=== PATIENT | female | born 1990 | race Caucasian/White ===

== ENCOUNTER → 2018-12-03 | Outpatient (CLI) | payer OTHER ==
[2018-12-03 12:45] LABS: Basophils % (A) 1 %; Eosinophils # (A) 0.1 k/uL (0-0.7); Eosinophils % (A) 1 %; HGB 12.3 gm/dL (11.4-16.0); Lymphocytes # (A) 2.5 k/uL (1.0-4.8); Lymphocytes % (A) 34 %; MCH 29.2 pg (25.0-35.0); MCHC 33.2 g/dL (31.0-37.0); MCV 87.9 fL (80.0-100.0); Mean Platelet Volume 7.3; Monocytes # (A) 0.2 k/uL (0-1.0); Monocytes % (A) 3 %; Neutrophils # (A) 4.5 k/uL (1.3-7.7); Neutrophils % (A) 60 %; Platelet Count 255 k/uL (150-450); RBC 4.21 m/uL (3.80-5.40); RDW 12.2 % (11.5-15.5); WBC 7.5 k/uL (3.8-10.6)
[2018-12-03 14:39] LABS: Erythrocyte Sedimentation Rate 6 mm/hr (0-20)
[2018-12-03 18:23] LABS: Rheumatoid Factor 10 IU/mL (0-15)
== END | disposition home or self-care (01) ==
LOC: LABWHC1 12:21
PROVIDERS: ATTEND Physician Assistant
DX: F41.9 Anxiety disorder, unspecified (principal); I73.00 Raynaud's syndrome without gangrene; N30.00 Acute cystitis without hematuria
CPT/HCPCS: 36415; 85025; 85652; 86038; 86431

== ENCOUNTER 2020-03-08 13:25 | Emergency (ER) | payer OTHER ==
[2020-03-08 13:39] VITALS: TEMP 98.4
[2020-03-08] MEDS ORDERED: SODIUM CHLORIDE 0.9% 500 ML 500 ML IV STA (13:52)
[2020-03-08] MEDS ORDERED: MORPHINE SULFATE 4 MG/ML SYRINGE IV STA (13:52)
[2020-03-08] MEDS ORDERED: ONDANSETRON 4 MG/2 ML VIAL IVP STA (13:52)
--- NOTE | 2020-03-08 14:11 | ED ---
General Adult HPI - General Chief complaint: Abdominal Pain Stated complaint: Chest Pain-Sent by PCP Time Seen by Provider: 03/08/20 13:40 Source: patient, RN notes reviewed, old records reviewed Mode of arrival: wheelchair Limitations: no limitations - History of Present Illness Initial comments: 30-year-old female history of hiatal hernia presenting with epigastric abdominal pain or chest pain. She was sent in by her general surgeon for evaluation. She states she had one episode of vomiting yesterday. The pain is epigastric, nonradiating. She describes it as severe in nature. She's having normal bowel movements, no diarrhea. No fever. - Related Data Home Medications Medication Instructions Recorded Confirmed Kpavhyl-Luff-Himv [id number] 1 tab PO BID PRN 10/04/15 03/08/20 [Excedrin] HYDROcodone/APAP 7.5-325MG [[place] 1 tab PO BID 10/04/15 03/08/20 7.5-325] Diclofenac Sodium [Voltaren Gel] 1 applic TOPICAL QID PRN 03/08/20 03/08/20 Omeprazole Magnesium [PriLOSEC OTC] 20 mg PO BID 03/08/20 03/08/20 Allergies Allergy/AdvReac Type Severity Reaction Status Date / Time hydromorphone HCl Allergy Nausea & Verified 03/08/20 16:29 [From Dilaudid] Vomiting Review of Systems ROS Statement: Those systems with pertinent positive or pertinent negative responses have been documented in the HPI. ROS Other: All systems not noted in ROS Statement are negative. Past Medical History Past Medical History: Fibromyalgia Additional Past Medical History / Comment(s): HEMANGIOMAS IN THROAT. HX FREQ UTI. MIGRAINES. abdominal pain, degenerative disk disease History of Any Multi-Drug Resistant Organisms: None Reported Past Surgical History: Section, Hernia Repair, Tonsillectomy, Tubal Ligation, Uterine Ablation Past Anesthesia/Blood Transfusion Reactions: Family History of Problems w/ Anesthesia Additional Past Anesthesia/Blood Transfusion Reaction / Comment(s): mother- "heart stopped on the table" Past Psychological History: Anxiety, Depression Smoking Status: Never smoker Past Alcohol Use History: Rare Past Drug Use History: None Reported - Past Family History Mother Family Medical History: No Reported History General Exam Limitations: no limitations General appearance: alert, in no apparent distress Head exam: Present: atraumatic, normocephalic Eye exam: Present: normal appearance, PERRL ENT exam: Present: normal exam Neck exam: Present: normal inspection. Absent: tenderness, meningismus Respiratory exam: Present: normal lung sounds bilaterally. Absent: respiratory distress, wheezes Cardiovascular Exam: Present: regular rate, normal rhythm GI/Abdominal exam: Present: soft, tenderness (Epigastric tenderness). Absent: distended, guarding, rebound Extremities exam: Present: normal inspection, normal capillary refill Neurological exam: Present: alert, oriented X3, CN II-XII intact. Absent: motor sensory deficit Skin exam: Present: warm, dry, intact. Absent: cyanosis, diaphoretic Course Vital Signs 03/08/20 03/08/20 03/08/20 13:37 15:31 17:00 Temperature 98.4 F Pulse Rate 101 H 111 H 110 H Respiratory 16 20 20 Rate Blood Pressure 126/82 132/78 137/92 O2 Sat by Pulse 100 100 99 Oximetry EKG Findings - EKG Comments: EKG Findings:: EKG: Normal sinus rhythm, rate of 88, LA interval 128, QRS duration 78, QTC 457, no ST segment elevation, T-wave inversion in lead V2. Medical Decision Making - Medical Decision Making 30 yo presenting with epigastric abdominal pain. Ultrasound showing a single large mobile gallstone, no acute cholecystitis. She has normal CBC, normal CMP x-ray performed negative for obstruction. She did remain quite symptomatic while emergency department, CT was ordered this was negative for any acute intra-abdominal pathology. I discussed case with general surgery Dr. Kemp who will see the patient is ON Thursday. She will have a no fat clear liquid diet until that time. - Lab Data Result diagrams: 03/08/20 14:25 03/08/20 14:25 Lab Results 03/08/20 03/08/20 03/08/20 Range/Units 14:25 14:25 14:25 WBC 7.3 (3.8-10.6) k/uL RBC 4.57 (3.80-5.40) m/uL Hgb 13.3 (11.4-16.0) gm/dL Hct 40.1 (34.0-46.0) % MCV 87.7 (80.0-100.0) fL MCH 29.2 (25.0-35.0) pg MCHC 33.3 (31.0-37.0) g/dL RDW 11.9 (11.5-15.5) % Plt Count 251 (150-450) k/uL Neutrophils % 64 % Lymphocytes % 28 % Monocytes % 4 % Eosinophils % 1 % Basophils % 1 % Neutrophils # 4.7 (1.3-7.7) k/uL Lymphocytes # 2.1 (1.0-4.8) k/uL Monocytes # 0.3 (0-1.0) k/uL Eosinophils # 0.1 (0-0.7) k/uL Basophils # 0.0 (0-0.2) k/uL PT 10.6 (9.0-12.0) sec INR 1.0 (<1.2) APTT 23.3 (22.0-30.0) sec Sodium 139 (137-145) mmol/L Potassium 4.2 (3.5-5.1) mmol/L Chloride 106 (98-107) mmol/L Carbon Dioxide 26 (22-30) mmol/L Anion Gap 7 mmol/L BUN 14 (7-17) mg/dL Creatinine 0.60 (0.52-1.04) mg/dL Est GFR (CKD-EPI)AfAm >90 (>60 ml/min/1.73 sqM) Est GFR (CKD-EPI)NonAf >90 (>60 ml/min/1.73 sqM) Glucose 90 (74-99) mg/dL Plasma Lactic Acid Raciel (0.7-2.0) mmol/L Calcium 9.4 (8.4-10.2) mg/dL Total Bilirubin 0.4 (0.2-1.3) mg/dL AST 22 (14-36) U/L ALT 10 (4-34) U/L Alkaline Phosphatase 53 (38-126) U/L Troponin I (0.000-0.034) ng/mL Total Protein 7.5 (6.3-8.2) g/dL Albumin 4.5 (3.5-5.0) g/dL Amylase 58 (30-110) U/L Lipase 170 (23-300) U/L Urine Color Urine Appearance (Clear) Urine pH (5.0-8.0) Ur Specific [place] (1.001-1.035) Urine Protein (Negative) Urine Glucose (UA) (Negative) Urine Ketones (Negative) Urine Blood (Negative) Urine Nitrite (Negative) Urine Bilirubin (Negative) Urine Urobilinogen (<2.0) mg/dL Ur Leukocyte Esterase (Negative) Urine RBC (0-5) /hpf Urine WBC (0-5) /hpf Ur Squamous Epith Cells (0-4) /hpf Urine Mucus (None) /hpf Urine HCG, Qual (Not Detectd) 03/08/20 03/08/20 03/08/20 Range/Units 14:25 14:25 14:31 WBC (3.8-10.6) k/uL RBC (3.80-5.40) m/uL Hgb (11.4-16.0) gm/dL Hct (34.0-46.0) % MCV (80.0-100.0) fL MCH (25.0-35.0) pg MCHC (31.0-37.0) g/dL RDW (11.5-15.5) % Plt Count (150-450) k/uL Neutrophils % % Lymphocytes % % Monocytes % % Eosinophils % % Basophils % % Neutrophils # (1.3-7.7) k/uL Lymphocytes # (1.0-4.8) k/uL Monocytes # (0-1.0) k/uL Eosinophils # (0-0.7) k/uL Basophils # (0-0.2) k/uL PT (9.0-12.0) sec INR (<1.2) APTT (22.0-30.0) sec Sodium (137-145) mmol/L Potassium (3.5-5.1) mmol/L Chloride (98-107) mmol/L Carbon Dioxide (22-30) mmol/L Anion Gap mmol/L BUN (7-17) mg/dL Creatinine (0.52-1.04) mg/dL Est GFR (CKD-EPI)AfAm (>60 ml/min/1.73 sqM) Est GFR (CKD-EPI)NonAf (>60 ml/min/1.73 sqM) Glucose (74-99) mg/dL Plasma Lactic Acid Raciel 0.7 (0.7-2.0) mmol/L Calcium (8.4-10.2) mg/dL Total Bilirubin (0.2-1.3) mg/dL AST (14-36) U/L ALT (4-34) U/L Alkaline Phosphatase (38-126) U/L Troponin I <0.012 (0.000-0.034) ng/mL Total Protein (6.3-8.2) g/dL Albumin (3.5-5.0) g/dL Amylase (30-110) U/L Lipase (23-300) U/L Urine Color Yellow Urine Appearance Cloudy H (Clear) Urine pH 7.0 (5.0-8.0) Ur Specific [place] 1.024 (1.001-1.035) Urine Protein Negative (Negative) Urine Glucose (UA) Negative (Negative) Urine Ketones Negative (Negative) Urine Blood Negative (Negative) Urine Nitrite Negative (Negative) Urine Bilirubin Negative (Negative) Urine Urobilinogen <2.0 (<2.0) mg/dL Ur Leukocyte Esterase Negative (Negative) Urine RBC 1 (0-5) /hpf Urine WBC 3 (0-5) /hpf Ur Squamous Epith Cells 13 H (0-4) /hpf Urine Mucus Many H (None) /hpf Urine HCG, Qual (Not Detectd) 03/08/20 Range/Units 14:31 WBC (3.8-10.6) k/uL RBC (3.80-5.40) m/uL Hgb (11.4-16.0) gm/dL Hct (34.0-46.0) % MCV (80.0-100.0) fL MCH (25.0-35.0) pg MCHC (31.0-37.0) g/dL RDW (11.5-15.5) % Plt Count (150-450) k/uL Neutrophils % % Lymphocytes % % Monocytes % % Eosinophils % % Basophils % % Neutrophils # (1.3-7.7) k/uL Lymphocytes # (1.0-4.8) k/uL Monocytes # (0-1.0) k/uL Eosinophils # (0-0.7) k/uL Basophils # (0-0.2) k/uL PT (9.0-12.0) sec INR (<1.2) APTT (22.0-30.0) sec Sodium (137-145) mmol/L Potassium (3.5-5.1) mmol/L Chloride (98-107) mmol/L Carbon Dioxide (22-30) mmol/L Anion Gap mmol/L BUN (7-17) mg/dL Creatinine (0.52-1.04) mg/dL Est GFR (CKD-EPI)AfAm (>60 ml/min/1.73 sqM) Est GFR (CKD-EPI)NonAf (>60 ml/min/1.73 sqM) Glucose (74-99) mg/dL Plasma Lactic Acid Raciel (0.7-2.0) mmol/L Calcium (8.4-10.2) mg/dL Total Bilirubin (0.2-1.3) mg/dL AST (14-36) U/L ALT (4-34) U/L Alkaline Phosphatase (38-126) U/L Troponin I (0.000-0.034) ng/mL Total Protein (6.3-8.2) g/dL Albumin (3.5-5.0) g/dL Amylase (30-110) U/L Lipase (23-300) U/L Urine Color Urine Appearance (Clear) Urine pH (5.0-8.0) Ur Specific [place] (1.001-1.035) Urine Protein (Negative) Urine Glucose (UA) (Negative) Urine Ketones (Negative) Urine Blood (Negative) Urine Nitrite (Negative) Urine Bilirubin (Negative) Urine Urobilinogen (<2.0) mg/dL Ur Leukocyte Esterase (Negative) Urine RBC (0-5) /hpf Urine WBC (0-5) /hpf Ur Squamous Epith Cells (0-4) /hpf Urine Mucus (None) /hpf Urine HCG, Qual Not Detected (Not Detectd) Disposition Clinical Impression: Biliary colic, Gallstones Disposition: HOME SELF-CARE Condition: Good Instructions (If sedation given, give patient instructions): Abdominal Pain (ED), Gallstones (ED), Biliary Colic (ED) Is patient prescribed a controlled substance at d/c from ED?: No Referrals: Rickie Ignacio MD [Primary Care Provider] - 1-2 days Delmar Kemp MD [STAFF PHYSICIAN] - 1-2 days Time of Disposition: 17:33
[2020-03-08 14:45] LABS: Basophils % (A) 1 %; Eosinophils # (A) 0.1 k/uL (0-0.7); Eosinophils % (A) 1 %; HCT 40.1 % (34.0-46.0); HGB 13.3 gm/dL (11.4-16.0); Lymphocytes # (A) 2.1 k/uL (1.0-4.8); Lymphocytes % (A) 28 %; MCH 29.2 pg (25.0-35.0); MCHC 33.3 g/dL (31.0-37.0); MCV 87.7 fL (80.0-100.0); Monocytes # (A) 0.3 k/uL (0-1.0); Monocytes % (A) 4 %; Neutrophils # (A) 4.7 k/uL (1.3-7.7); Neutrophils % (A) 64 %; Platelet Count 251 k/uL (150-450); RBC 4.57 m/uL (3.80-5.40); RDW 11.9 % (11.5-15.5); WBC 7.3 k/uL (3.8-10.6)
[2020-03-08 14:46] LABS: Appearance,Urine Cloudy (Clear); Bilirubin,Urine Negative (Negative); Blood,Urine Negative (Negative); Color,Urine Yellow; Glucose,Urine (UA) Negative (Negative); Ketones,Urine Negative (Negative); Leukocyte Esterase,Urine Negative (Negative); Mucus,Urine Many /hpf; Nitrite,Urine Negative (Negative); Protein,Urine Negative (Negative); RBC,Urine 1 /hpf (0-5); Specific Gravity,Urine 1.024 (1.001-1.035); Squamous Epithelial Cell,Urine 13 /hpf (0-4); Urobilinogen,Urine <2.0 mg/dL (<2.0); WBC,Urine 3 /hpf (0-5)
[2020-03-08 14:54] LABS: ALT 10 U/L (4-34); AST 22 U/L (14-36); African American GFR (CKD) >90 (>60 ml/min/1.73 sqM); Albumin 4.5 g/dL (3.5-5.0); Alkaline Phosphatase 53 U/L (38-126); Amylase 58 U/L (30-110); Anion Gap 7 mmol/L; Blood Urea Nitrogen 14 mg/dL (7-17); Calcium 9.4 mg/dL (8.4-10.2); Carbon Dioxide 26 mmol/L (22-30); Chloride 106 mmol/L (98-107); Glucose 90 mg/dL (74-99); Non-African American GFR(CKD) >90 (>60 ml/min/1.73 sqM); Potassium 4.2 mmol/L (3.5-5.1); Sodium 139 mmol/L (137-145); Total Bilirubin 0.4 mg/dL (0.2-1.3); Total Protein 7.5 g/dL (6.3-8.2)
[2020-03-08 14:57] LABS: Partial Thromboplastin Time 23.3 sec (22.0-30.0); Prothrombin Time 10.6 sec (9.0-12.0)
[2020-03-08] MEDS ORDERED: MAG HYDROX/AL HYDROX/SIMETH 30 ML, HYOSCYAMINE ELIXIR 10 ML, LIDOCAINE VISCOUS 2% 10 ML PO STA ×3 (15:17)
[2020-03-08] MEDS ORDERED: MORPHINE SULFATE 4 MG/ML SYRINGE IVP STA (15:17)
--- NOTE | 2020-03-08 15:21 | XR ---
EXAMINATION TYPE: XR KUB DATE OF EXAM: 03/08/2020 3:12 PM CLINICAL HISTORY: Abdominal pain TECHNIQUE: Upright images of the abdomen and pelvis were obtained COMPARISON: None. FINDINGS: Paucity of small bowel and colonic gas. The visualized bowel gas pattern is nonspecific. Th ere is a moderate amount of colonic fecal debris within the cecum and ascending colon. There is no vi sceromegaly, pneumoperitoneum, or abnormal calcification appreciated. The lung bases are clear. The o sseous structures are intact. IMPRESSION: 1. Nonspecific bowel gas pattern. 2. Moderate ascending colon fecal debris. Correlate for constipation.
[2020-03-08 15:34] VITALS: RESP 20
--- NOTE | 2020-03-08 16:06 | US ---
EXAMINATION TYPE: US gallbladder DATE OF EXAM: 03/08/2020 COMPARISON: NONE CLINICAL HISTORY: ab ;pain. severe epigastric pain x 6 days EXAM MEASUREMENTS: Liver Length: 16.2 cm Gallbladder Wall: 0.2 cm CBD: 0.5 cm Right Kidney: 10.6 x 6.6 x 3.1 cm Pancreas: wnl Liver: wnl Gallbladder: large shadowing and mobile stone imaged= 1.5 x 1.6 x 0.7cm Evidence for sonographic Vieyra's sign: no CBD: wnl Right Kidney: No hydronephrosis or masses seen Visualized pancreas is unremarkable. IVC seen in the hepatic dome. Visualized liver shows no worrisom e mass or ductal dilatation. There is large shadowing mobile gallstone in gallbladder. No surrounding pericholecystic fluid or abnormal wall thickening. IMPRESSION: SINGLE LARGE MOBILE GALLSTONE WITHOUT SECONDARY ULTRASOUND EVIDENCE FOR ACUTE CHOLECYSTIT IS
[2020-03-08] MEDS ORDERED: SODIUM CHLORIDE 0.9% 500 ML 500 ML IV ONE (16:35)
[2020-03-08] MEDS ORDERED: HYDROmorphone 1 MG/ML 1 ML SYRINGE IVP STA (16:35)
[2020-03-08 17:02] VITALS: BP 137/92; PULSE 110
--- NOTE | 2020-03-08 17:16 | CT ---
EXAMINATION TYPE: CT abdomen pelvis w con DATE OF EXAM: 03/08/2020 COMPARISON: Ultrasound 03/08/2020 HISTORY: Pt c/o pain around xiphiod region of chest x [address] DLP: 563.4 mGycm Automated exposure control for dose reduction was used. TECHNIQUE: Helical acquisition of images was performed from the lung bases through the pelvis. CONTRAST: Performed without Oral Contrast and with IV Contrast, patient injected with 100 mL of Isovu e 300. FINDINGS: LUNG BASES: No significant abnormality is appreciated. LIVER/GB: No significant abnormality is appreciated. PANCREAS: No significant abnormality is seen. SPLEEN: No significant abnormality is seen. ADRENALS: No significant abnormality is seen. KIDNEYS: No significant abnormality is seen. FREE AIR: No free air is visualized. RETROPERITONEAL ADENOPATHY: None visualized REPRODUCTIVE ORGANS: No significant abnormality is seen URINARY BLADDER: No significant abnormality is seen. PELVIC ADENOPATHY: None visualized. OSSEOUS STRUCTURES: No significant abnormality is seen. BOWEL: No significant abnormality is seen. OTHER: No acute vascular findings. No xiphoid or kareen-xiphoid findings. IMPRESSION: 1. NEGATIVE EXAMINATION. 2. NO CORRELATE FOR THE PATIENT'S SYMPTOMS.
== END 2020-03-08 17:50 | disposition home or self-care (01) ==
LOC: EC 13:25
DX: K80.70 Calculus of gallbladder and bile duct without cholecystitis without obstruction (principal); Z88.8 Allergy status to other drugs, medicaments and biological substances
CPT/HCPCS: 36415; 93005; 80053; 82150; 83605; 83690; 84484; 85025; 85610; 85730; 81001; 81025; 74018; 76705; 74177; 99285; 96374; 96375 ×2; 96376; 96361 ×2; J2270; J2405; J1170; Q9967

== ENCOUNTER → 2020-03-21 | Day surgery (SDC) | payer OTHER ==
[2020-03-20 08:22] VITALS: BMI 22.6
[~2020-03-21] MED LIST: ACETAMINOPHEN TAB 500 MG TAB PO ONE; DEXAMETHASONE SOD PHOS (MDV) 100 MG/10 ML VIAL IVP ONE; FAMOTIDINE 20 MG/2 ML VIAL IV PRN; GLYCOPYRROLATE 0.2 MG/ML 2 ML VIAL ONE; HEPARIN SODIUM,PORCINE 5,000 UNIT/ML 1 ML VIAL SQ ONE; LACTATED RINGERS 1,000 ML IV ONE; LACTATED RINGERS 1,000 ML IV SCH; LIDOCAINE 1% (10MG/ML) FOR IV START INTRADERMA PRN; LIDOCAINE 1% INJ 10MG/ML (20 ML MDV) ONE; LIDOCAINE 1%-EPI 1:100,000 20 ML VIAL SQ ONE; MIDAZOLAM 2 MG/2 ML VIAL ONE; NEOSTIGMINE 1 MG/ML 10 ML VIAL ONE; ONDANSETRON 4 MG/2 ML VIAL IVP PRN; ONDANSETRON 4 MG/2 ML VIAL ONE; PROPOFOL 10 MG/ML 20 ML VIAL IV ONE; ROCURONIUM BROMIDE 10 MG/ML 5 ML VIAL IV ONE; SUCCINYLCHOLINE CHLORIDE 100 MG/5 ML SYR IV ONE; fentaNYL (PF) 50 MCG/ML 2 ML AMP ONE
--- NOTE | 2020-03-21 09:50 | P.GSHP ---
History of Present Illness H&P Date: 03/21/20 Chief Complaint: Right upper quadrant pain This a 30-year-old female with complaints of right upper quadrant pain. Patient underwent have evidence of cholelithiasis. She presents today for laparoscopic cholecystectomy. Past Medical History Past Medical History: Fibromyalgia, GERD/Reflux Additional Past Medical History / Comment(s): HEMANGIOMAS IN THROAT. HX FREQ UTI. MIGRAINES. degenerative disk disease, hiatal hernia, constipation, large gallstone, denies abdominal pain History of Any Multi-Drug Resistant Organisms: None Reported Past Surgical History: Adenoidectomy, Section, Hernia Repair, Tonsillectomy, Tubal Ligation, Uterine Ablation Additional Past Surgical History / Comment(s): laser surgery on throat for he mangioma x 3, C/S x 3, umbilical and inguinal hernia repair Past Anesthesia/Blood Transfusion Reactions: Family History of Problems w/ Anesthesia Additional Past Anesthesia/Blood Transfusion Reaction / Comment(s): mother- "heart stopped on the table" Smoking Status: Never smoker - Past Family History Mother Family Medical History: No Reported History Medications and Allergies Home Medications Medication Instructions Recorded Confirmed Type Apgnpwl-Ezti-Gknh [id number] 1 tab PO BID PRN 10/04/15 03/21/20 History [Excedrin] HYDROcodone/APAP 7.5-325MG [[place] 1 tab PO BID 10/04/15 03/21/20 History 7.5-325] Omeprazole Magnesium [PriLOSEC OTC] 20 mg PO QAM 03/08/20 03/21/20 History Allergies Allergy/AdvReac Type Severity Reaction Status Date / Time hydromorphone HCl Allergy Nausea & Verified 03/21/20 08:47 [From Dilaudid] Vomiting Surgical - Exam Vital Signs Temp Pulse Resp BP Pulse Ox 97.2 F L 85 16 114/68 98 03/21/20 08:46 03/21/20 08:46 03/21/20 08:46 03/21/20 08:46 03/21/20 08:46 - General well developed, well nourished, no distress - Eyes PERRL - ENT normal pinna - Neck no masses - Respiratory normal expansion - Cardiovascular Rhythm: regular - Abdomen Abdomen: soft, non tender Assessment and Plan Assessment: Right upper quadrant pain Cholelithiasis We'll perform laparoscopic cholecystectomy.
--- NOTE | 2020-03-21 10:18 | P.OP ---
Date of Procedure: 03/21/20 Preoperative Diagnosis: Cholelithiasis Postoperative Diagnosis: Cholelithiasis Procedure(s) Performed: Laparoscopic cholecystectomy Anesthesia: CLEMENTINA Surgeon: Delmar Kemp Estimated Blood Loss (ml): 5 Pathology: other (Gallbladder) Condition: stable Disposition: PACU Description of Procedure: The patient was placed on the operating table. The patient received a general endotracheal tube anesthesia. The patients abdomen was prepped and draped in the usual sterile fashion. Through an infraumbilical stab incision, the fascia of the anterior abdominal wall was grasped with a pair of Kochers and then the Veress needle was placed in the peritoneal cavity. Position of the Veress needle was confirmed with positive drop test. The abdomen was then insufflated. After adequate insufflation, the 10 mm trocar was placed in the peritoneal cavity. Following this the laparoscope was placed in the peritoneal cavity. The patient was placed in the head-up, right side up position and then a 5 mm trocar was placed in the right lateral and right subcostal position under direct visualization. A 8 mm trocar was placed in the epigastric position. The gallbladder was grasped in the fundus and infundibulum. Traction on the gallbladder was placed in the lateral and the cephalad positions. The triangle of Calot was visualized.. The cystic duct was bluntly dissected until the union of the cystic duct and common bile duct was seen. A critical view of safety was achieved. The cystic duct was then divided and sealed with the Harmonic scissors. A PDS Endoloop was then placed throughout the cystic duct stump. The cystic artery divided and sealed with the Harmonic scissors. The gallbladder was then removed from the liver bed using Harmonic scissors. The gallbladder was then extracted through the epigastric port site. Operative field was checked for any bleeding spots and Harmonic scissors was used to coagulate the liver bed. The abdomen was irrigated. The trocars were removed. The skin was closed using interrupted 3-0 Vicryl suture. Dermabond dressing were applied. The patient tolerated the procedure well.
[2020-03-21 10:26] VITALS: TEMP 96.8
[2020-03-21] MEDS: MORPHINE SULFATE 4 MG/ML SYRINGE IV PRN ×4 (11:28→11:43)
[2020-03-21 12:45] VITALS: BP 119/74; PULSE 88; RESP 20
== END ==
LOC: OR 08:26
PROVIDERS: ATTEND Surgery
DX: K80.10 Calculus of gallbladder with chronic cholecystitis without obstruction (principal); M79.7 Fibromyalgia; K21.9 Gastro-esophageal reflux disease without esophagitis; M51.9 Unspecified thoracic, thoracolumbar and lumbosacral intervertebral disc disorder; Z86.2 Personal history of diseases of the blood and blood-forming organs and certain disorders involving the immune mechanism; Z87.440 Personal history of urinary (tract) infections; Z86.69 Personal history of other diseases of the nervous system and sense organs; Z87.19 Personal history of other diseases of the digestive system; Z90.89 Acquired absence of other organs; Z98.890 Other specified postprocedural states; Z98.51 Tubal ligation status; Z79.891 Long term (current) use of opiate analgesic; Z79.899 Other long term (current) drug therapy; Z88.5 Allergy status to narcotic agent; Z84.89 Family history of other specified conditions
CPT/HCPCS: 81025; 88304; 47562; J2250; J2270; J2710; J0690; J2405; J2001; J3010; J1100; J0330; J2704

== ENCOUNTER 2020-04-26 08:35 | Day surgery (SDC) | payer OTHER ==
[2020-04-25 09:57] VITALS: BMI 22.3
[~2020-04-26 08:35] MED LIST changes: -ACETAMINOPHEN TAB 500 MG TAB PO ONE; -DEXAMETHASONE SOD PHOS (MDV) 100 MG/10 ML VIAL IVP ONE; -FAMOTIDINE 20 MG/2 ML VIAL IV PRN; -GLYCOPYRROLATE 0.2 MG/ML 2 ML VIAL ONE; -HEPARIN SODIUM,PORCINE 5,000 UNIT/ML 1 ML VIAL SQ ONE; -LACTATED RINGERS 1,000 ML IV ONE; -LIDOCAINE 1% (10MG/ML) FOR IV START INTRADERMA PRN; -LIDOCAINE 1% INJ 10MG/ML (20 ML MDV) ONE; -LIDOCAINE 1%-EPI 1:100,000 20 ML VIAL SQ ONE; -MIDAZOLAM 2 MG/2 ML VIAL ONE; -NEOSTIGMINE 1 MG/ML 10 ML VIAL ONE; -ONDANSETRON 4 MG/2 ML VIAL IVP PRN; -ONDANSETRON 4 MG/2 ML VIAL ONE; -PROPOFOL 10 MG/ML 20 ML VIAL IV ONE; -ROCURONIUM BROMIDE 10 MG/ML 5 ML VIAL IV ONE; -SUCCINYLCHOLINE CHLORIDE 100 MG/5 ML SYR IV ONE; -fentaNYL (PF) 50 MCG/ML 2 ML AMP ONE
[2020-04-26] MEDS ORDERED: LIDOCAINE 1% (10MG/ML) FOR IV START INTRADERMA ONE (09:01)
[2020-04-26 09:09] VITALS: RESP 16; TEMP 97.4
[2020-04-26] MEDS ORDERED: PROPOFOL 10 MG/ML 20 ML VIAL IV ONE (09:34)
--- NOTE | 2020-04-26 09:35 | P.GSHP ---
History of Present Illness H&P Date: 04/26/20 Chief Complaint: GERD Is a 30-year-old female history of GERD. Patient rents today for EGD. Past Medical History Past Medical History: Fibromyalgia, GERD/Reflux Additional Past Medical History / Comment(s): HEMANGIOMAS IN THROAT. HX FREQ UTI. MIGRAINES. degenerative disk disease, hiatal hernia, constipation, large gallstone, denies abdominal pain,umbilical & inguinal hernias History of Any Multi-Drug Resistant Organisms: None Reported Past Surgical History: Adenoidectomy, Section, Cholecystectomy, Hernia Repair, Plyoromyotomy, Tonsillectomy, Tubal Ligation, Uterine Ablation Additional Past Surgical History / Comment(s): 03-21-20 lap ana,laser surgery on throat for hemangioma x 3, C/S x 3, umbilical and inguinal hernia repair Past Anesthesia/Blood Transfusion Reactions: Family History of Problems w/ Anesthesia Additional Past Anesthesia/Blood Transfusion Reaction / Comment(s): mother- "heart stopped on the table-no further problems",pt takes awhile to wake up Smoking Status: Never smoker - Past Family History Mother Family Medical History: No Reported History Medications and Allergies Home Medications Medication Instructions Recorded Confirmed Type Icileai-Rper-Mfcp [id number] 1 tab PO BID PRN 10/04/15 04/26/20 History [Excedrin] HYDROcodone/APAP 7.5-325MG [[place] 1 tab PO BID 10/04/15 04/26/20 History 7.5-325] Omeprazole Magnesium [PriLOSEC OTC] 20 mg PO QAM 03/08/20 04/26/20 History Allergies Allergy/AdvReac Type Severity Reaction Status Date / Time hydromorphone HCl Allergy Nausea & Verified 04/26/20 08:53 [From Dilaudid] Vomiting,(ok is given with zofran) Surgical - Exam Vital Signs Temp Pulse Resp BP Pulse Ox 97.4 F L 96 16 130/74 99 04/26/20 09:02 04/26/20 09:02 04/26/20 09:02 04/26/20 09:02 04/26/20 09:02 - General well developed, well nourished, no distress - Eyes PERRL - ENT normal pinna - Neck no masses - Respiratory normal expansion - Cardiovascular Rhythm: regular - Abdomen Abdomen: soft, non tender Assessment and Plan Assessment: GERD. We'll perform EGD.
--- NOTE | 2020-04-26 09:48 | P.OP ---
Date of Procedure: 04/26/20 Preoperative Diagnosis: GERD Postoperative Diagnosis: Antral gastritis No evidence of hiatal hernia No significant esophagitis Procedure(s) Performed: EGD Anesthesia: MAC Surgeon: Delmar Kemp Pathology: other (Antrum) Condition: stable Disposition: PACU Description of Procedure: The patient's placed on the endoscopy table lateral position. He received IV sedation. The gastro-/oropharynx and passed in the esophagus into the stomach. Scope was placed through the pylorus. The first and second portion of the duodenum appeared normal. Scope was then brought back the antrum this was inflamed. A biopsies performed. The scope was unretroflexed and remainder of the stomach appeared normal. There was no hiatal hernia. The GE junction was at 40 cm. The distal esophagus was normal. The proximal esophagus appeared normal. Scope was withdrawn for patient.
[2020-04-26 09:55] VITALS: BP 106/69; PULSE 84
== END 2020-04-26 10:15 | disposition home or self-care (01) ==
LOC: ORWHC2ENDO 08:35
PROVIDERS: ATTEND Surgery
DX: K29.70 Gastritis, unspecified, without bleeding (principal); K21.9 Gastro-esophageal reflux disease without esophagitis; M79.7 Fibromyalgia; Z90.49 Acquired absence of other specified parts of digestive tract; G43.909 Migraine, unspecified, not intractable, without status migrainosus; Z87.440 Personal history of urinary (tract) infections; Z98.891 History of uterine scar from previous surgery; Z79.82 Long term (current) use of aspirin; Z79.891 Long term (current) use of opiate analgesic; Z79.899 Other long term (current) drug therapy; Z88.5 Allergy status to narcotic agent; Z88.8 Allergy status to other drugs, medicaments and biological substances; K44.9 Diaphragmatic hernia without obstruction or gangrene
CPT/HCPCS: 81025; 43239; J2704; 88305

== ENCOUNTER → 2021-03-05 | Outpatient (CLI) | payer OTHER ==
[2021-03-05 20:10] LABS: C Reactive Protein <0.4 mg/dL (0.0-0.8); Rheumatoid Factor, Qnt 10 IU/mL (0-15)
[2021-03-05 20:11] LABS: ALT 12 U/L (8-44); AST 19 U/L (13-35); African American GFR (CKD) 113.1 (60.0-200.0); Alkaline Phosphatase 60 U/L (41-126); BUN/Creat Ratio 16.25 Ratio (12.00-20.00); Carbon Dioxide 26.2 mmol/L (21.6-31.8); Chloride 108 mmol/L (96-109); Creatine Kinase 96 U/L (26-186); Globulin 2.5 g/dL (1.6-3.3); Glucose 78 mg/dL (70-110); Non-African American GFR(CKD) 97.6 (60.0-200.0); Potassium 3.8 mmol/L (3.5-5.5); Sodium 144 mmol/L (135-145); Total Bilirubin 0.4 mg/dL (0.3-1.2)
== END | disposition home or self-care (01) ==
LOC: LABWHC1 10:43
PROVIDERS: ATTEND Nurse Practitioner Acute Care
DX: I49.9 Cardiac arrhythmia, unspecified (principal); M06.9 Rheumatoid arthritis, unspecified; M79.10 Myalgia, unspecified site; R42 Dizziness and giddiness
CPT/HCPCS: 36415; 80053; 82085; 82550; 85652; 86140; 86431; 93005

== ENCOUNTER 2021-04-09 09:02 | Day surgery (SDC) | payer OTHER ==
[2021-04-08 10:57] VITALS: BMI 23.8
[~2021-04-09 09:02] MED LIST changes: -LACTATED RINGERS 1,000 ML IV SCH; +SODIUM CHLORIDE 0.9% 1,000 ML IV SCH
[2021-04-09 09:37] VITALS: BP 116/61; PULSE 69; RESP 16; TEMP 983
--- NOTE | 2021-04-11 15:18 | P.EPPROC ---
- EP Procedure Note Electrophysiology Procedure Note: Diagnosis Loss of consciousness Twelve-lead EKG shows sinus rhythm normal ME narrow QRS normal ST segments with sinus arrhythmia Tilt table test for protocol Baseline blood pressure 109/69 mmHg, Baseline heart rate 58 beats a minute Patient was tilted upright at an angle of 70 per protocol No symptoms no change in her heart rate or blood pressure However she reported repetitive episodes of dizziness lightheadedness nausea blurring and a funny feeling in her heart. Later she felt heart and as a for heart was racing. At that time her blood pressure was 130/82 mmHg and 171 beats a minute Later once again she felt heart heart rate is 82 beats and blood pressure is 114/81 mmHg Impression Normal 12 lead EKG A variety of symptoms with upright tilting but without any heart rate or blood pressure abnormalities
== END 2021-04-09 11:47 | disposition home or self-care (01) ==
LOC: CATHEP 09:02
PROVIDERS: ATTEND Internal Medicine Clinical Cardiac Electrophysiology
DX: R55 Syncope and collapse (principal); G56.03 Carpal tunnel syndrome, bilateral upper limbs; M79.10 Myalgia, unspecified site; M79.7 Fibromyalgia; Z20.822 Contact with and (suspected) exposure to COVID-19; R41.3 Other amnesia; G43.909 Migraine, unspecified, not intractable, without status migrainosus; M47.816 Spondylosis without myelopathy or radiculopathy, lumbar region; M47.812 Spondylosis without myelopathy or radiculopathy, cervical region; F41.9 Anxiety disorder, unspecified; M19.90 Unspecified osteoarthritis, unspecified site; M06.9 Rheumatoid arthritis, unspecified; F32.9 Major depressive disorder, single episode, unspecified; M65.4 Radial styloid tenosynovitis [de Quervain]; Z81.8 Family history of other mental and behavioral disorders; Z82.49 Family history of ischemic heart disease and other diseases of the circulatory system; Z83.3 Family history of diabetes mellitus; Z81.1 Family history of alcohol abuse and dependence; Z82.3 Family history of stroke; Z82.61 Family history of arthritis; Z80.9 Family history of malignant neoplasm, unspecified; Z79.891 Long term (current) use of opiate analgesic; Z79.899 Other long term (current) drug therapy
CPT/HCPCS: 87635; 93660

== ENCOUNTER → 2021-10-10 | Outpatient (CLI) | payer OTHER ==
[2021-10-10 14:56] LABS: Basophils # (A) 0.02 X 10*3/uL (0.00-0.10); Basophils % (A) 0.5 %; Eosinophils # (A) 0.07 X 10*3/uL (0.04-0.35); Eosinophils % (A) 1.8 %; HCT 37.3 % (37.2-46.3); HGB 12.3 g/dL (12.0-15.0); Immature Grans, Automated 0.3 %; Lymphocytes # (A) 1.78 X 10*3/uL (0.90-5.00); Lymphocytes % (A) 46.7 %; MCH 30.2 pg (27.0-32.0); MCV 91.6 fL (80.0-97.0); Mean Platelet Volume 11.4 fL (9.5-12.2); Monocytes # (A) 0.22 X 10*3/uL (0.20-1.00); Monocytes % (A) 5.8 %; NRBC Per 100 WBC 0 /100 WBCS (0.0-0.0); Neutrophils # (A) 1.71 X 10*3/uL (1.80-7.70); Neutrophils % (A) 44.9 %; Platelet Count 211 X 10*3/uL (140-440); RBC 4.07 X 10*6/uL (4.10-5.20); RDW 11.6 % (11.5-14.5); WBC 3.81 X 10*3/uL (4.50-10.00)
== END ==
LOC: LABPAT 09:27
PROVIDERS: ATTEND Surgery
DX: Z01.812 Encounter for preprocedural laboratory examination (principal); K43.0 Incisional hernia with obstruction, without gangrene
CPT/HCPCS: 85025; 86850; 86900; 86901

== ENCOUNTER → 2022-11-24 | Outpatient (CLI) | payer OTHER ==
--- NOTE | 2022-11-24 17:00 | XR ---
EXAMINATION TYPE: XR lumbosacral spine min 4V DATE OF EXAM: 11/24/2022 Comparison: 02/26/2015 Clinical History: 32-year-old female R52, R52 low back pain Findings: There are 5 lumbar type vertebral bodies. Mild facet arthropathy lower lumbar spine. No pars interart icularis defect seen. Vertebral body heights are preserved and alignment is maintained. Impression: There is mild facet degenerative change in the lower lumbar spine. No vertebral compression collapse or malalignment.
== END | disposition home or self-care (01) ==
LOC: RADXRMAIN 12:02
PROVIDERS: ATTEND Physical Medicine & Rehabilitation
DX: M47.816 Spondylosis without myelopathy or radiculopathy, lumbar region (principal)
CPT/HCPCS: 72110

== ENCOUNTER → 2022-12-31 | Outpatient (CLI) | payer OTHER | END | disposition home or self-care (01) | LOC: LABWHC1 14:26 | PROVIDERS: ATTEND Psychiatry & Neurology Neurology | DX: I49.9 Cardiac arrhythmia, unspecified (principal) | CPT/HCPCS: 36415; 93005 ==